=== PATIENT | female | born 1955 | race Caucasian/White ===

== ENCOUNTER 2019-03-15 08:44 | Inpatient (IN) ==
--- NOTE | 2019-02-28 16:35 | PAT Medication Instructions ---
Medication Instructions Date of Service February 28, 2019 Home Medications Copaiba 3 drp PO QAM ascorbic acid (vitamin C) [Vitamin C] 500 mg PO 3XWK calcium carbonate-vitamin D3 [Calcium 600 + D(3)] 1 tab PO BID docusate sodium [Stool Softener] 100 mg PO BID garlic 1,000 mg PO 3XWK hydroxychloroquine [Plaquenil] 200 mg PO Q2D hydroxychloroquine [Plaquenil] 400 mg PO Q2D levothyroxine 75 mcg PO 0300 multivitamin 1 tab PO DAILY naproxen 500 mg PO QAM omega 2-yox-vgn-fish oil [Fish Oil] 1 cap PO DAILY Continue as directed levothyroxine 75 mcg PO 0300 ASK your surgeon for instructions naproxen 500 mg PO QAM ASK your prescriber and surgeon hydroxychloroquine [Plaquenil] 200 mg PO Q2D hydroxychloroquine [Plaquenil] 400 mg PO Q2D STOP taking 2 weeks before surgery (or as soon as possible if surgery is within 2 weeks) omega 2-aab-htd-fish oil [Fish Oil] 1 cap PO DAILY garlic 1,000 mg PO 3XWK DO NOT take the morning of surgery ascorbic acid (vitamin C) [Vitamin C] 500 mg PO 3XWK calcium carbonate-vitamin D3 [Calcium 600 + D(3)] 1 tab PO BID docusate sodium [Stool Softener] 100 mg PO BID multivitamin 1 tab PO DAILY Copaiba 3 drp PO QAM Other Notes If you have any questions please call us at [phone] or [phone] or [phone] or [phone]
--- NOTE | 2019-03-01 11:21 | Anesthesiology Consultation ---
Date of Service March 01, 2019 Assessment & Plan (1) Encounter for pre-operative examination: - Awaiting review preop testing (labs, EKG, CXR, c-spine xray). - Awaiting surgeon-ordered PCP preop evaluation done 02/28 (Dr. Nunez). Chart Review Chart Review: Acceptable Risk for Surgery and Patient seen in Pre Admission Testing Consults Requested none Teaching & Discussion Pre-Anesthesia Teaching/Discussion Notes: Instructed NPO after midnight before surgery,except medications with 15 cc of water. Medication instructions provided according to the PAT guidelines. History Surgery Operation Date: 03/15/19 12:00 Proposed Procedures p Right Total Knee Arthroplasty - Kosta Liriano DO Height/Weight Height: 5 ft 4.5 in Weight: 70 kg Allergies Allergy/AdvReac Type Severity Reaction Status Date / Time terconazole [From Terazol 3] Allergy Intermediate swelling/re Verified 02/28/19 15:06 dness doxepin Allergy Unknown Unknown Verified 02/28/19 15:10 hydrocodone Allergy Unknown Unknown Verified 02/28/19 15:10 neomycin Allergy Unknown Unknown - Verified 02/28/19 15:10 able to use Neosporin Medications Home Medications Medication Instructions Recorded Confirmed Last Taken Copaiba 3 drp PO QAM 02/28/19 02/28/19 Unknown ascorbic acid (vitamin C) [Vitamin 500 mg PO 3XWK 02/28/19 02/28/19 Unknown C] calcium carbonate-vitamin D3 1 tab PO BID 02/28/19 02/28/19 Unknown [Calcium 600 + D(3)] docusate sodium [Stool Softener] 100 mg PO BID 02/28/19 02/28/19 Unknown garlic 1,000 mg PO 3XWK 02/28/19 02/28/19 Unknown hydroxychloroquine [Plaquenil] 200 mg PO Q2D 02/28/19 02/28/19 Unknown hydroxychloroquine [Plaquenil] 400 mg PO Q2D 02/28/19 02/28/19 Unknown levothyroxine 75 mcg PO 0300 02/28/19 02/28/19 Unknown multivitamin 1 tab PO DAILY 02/28/19 02/28/19 Unknown naproxen 500 mg PO QAM 02/28/19 02/28/19 Unknown omega 4-ngu-plk-fish oil [Fish Oil] 1 cap PO DAILY 02/28/19 02/28/19 Unknown Past Medical History Medical History Hypothyroidism Osteoarthritis Rheumatoid arthritis Exercise / Class Metabolic Activity III < 4 Walking/Shop/Light housework Past Family History Family History Mother No problems noted. Father Family history of diabetes mellitus Uncle Family hx of colon cancer Grandfather (Paternal) Family history of diabetes mellitus Grandmother (Maternal) No problems noted. Grandmother (Paternal) Family history of diabetes mellitus Sister FHx: breast cancer Past Surgical History Surgical History Fusion of spine Cervical (C4-C5) with allograft bone Cervical Fusion (C3-C4) H/O thumb surgery right thumb, joint replacement History of appendectomy History of arthroscopy of both knees History of colonoscopy History of dilatation and curettage S/P foot surgery, right x2 Past Anesthesia History No Hx of Anesthesia Complications and No Family Hx of Anesthesia Complications History of PONV No Hx of PONV and Hx of Motion Sickness (mild) Social History Smoking Status: Former smoker tobacco type: cigarettes Do You Dip or Chew Tobacco: No Smoking End Date: Quit 1984 Hx Alcohol Use: Yes Alcohol type: beer and wine alcohol intake frequency: holidays/special occasions only Hx Substance Use: No substance use type: does not use Review of Systems Patient denies chest pain, shortness of breath, reflux, cough, wheezing, palpitations. Physical Exam Vital Signs VITALS BP 148/79 P 54 TEMP 97.8 SP02 98%RA RESP 16 PHYSICAL Full neck and c-spine range of motion. Full TMJ range of motion. TMD 3 finger breaths Mallampati Score 1 Dentition: intact, cap upper left side Lungs: clear throughout to auscultation Cardiac: regular rate and rhythm, no murmurs noted Spine: normal Carotid arteries: negative bruit Extremities: no edema Testing Laboratory Results 03/01/19 11:35 03/01/19 11:30 PT 10.7 Seconds (9.0-12.0) 03/01/19 11:35 INR 1.0 (0.9-1.1) 03/01/19 11:35 APTT 23.5 Seconds (21.0-31.0) 03/01/19 11:35 Hemoglobin A1c 5.6 % (4.5-5.6) 03/01/19 11:35 Urine Color Yellow 03/01/19 11:35 Urine Appearance Clear (Clear) 03/01/19 11:35 Urine pH 8.0 (4.5-7.5) H 03/01/19 11:35 Ur Specific [place] 1.010 (1.000-1.030) 03/01/19 11:35 Urine Protein Negative (Negative) 03/01/19 11:35 Urine Glucose (UA) Negative (Negative) 03/01/19 11:35 Urine Ketones Negative (Negative) 03/01/19 11:35 Urine Nitrite Negative (Negative) 03/01/19 11:35 Ur Leukocyte Esterase Negative (Negative) 03/01/19 11:35 Blood Type AB Positive 03/01/19 11:35 Antibody Screen NEGATIVE 03/01/19 11:35 Electrocardiogram Date: 03/01/19 Findings: + SB @ Chest X-Ray Date: 03/01/19 Findings: + NAD Cervical Spine Date: 03/01/19 Findings: less than 5mm instability (3mm at C4/5)
[2019-03-01 12:05] LABS: Basophils # (auto) 0.02 K/uL (0-0.2); Basophils % (auto) 0.4 %; Eosinophils # (auto) 0.11 K/uL (0-0.5); Eosinophils % (auto) 2.4 %; Hematocrit (blood only) 39.7 % (37-47); Hemoglobin 13.6 g/dL (12.0-16.0); Lymphocytes # (auto) 1.55 K/uL (1.2-3.4); Lymphocytes % (auto) 34.5 %; Mean Corpuscular Hemoglobin 32.5 pg (25-34); Mean Corpuscular Hgb Conc 34.3 g/dL (32-36); Mean Platelet Volume 10.2 fL (7.4-10.4); Monocytes # (auto) 0.31 K/uL (0.11-0.59); Monocytes % (auto) 6.9 %; Neutrophils % (auto) 55.8 %; Platelet Count 246 K/uL (130-400); RDW Coefficient of Variation 12.9 % (11.5-14.5); RDW Standard Deviation 44.8 fL (36.4-46.3); Red Blood Count 4.18 M/uL (4.2-5.4); White Blood Count 4.49 K/uL (4.8-10.8)
[2019-03-01 12:08] LABS: Appearance Urine Clear (Clear); Bilirubin Urine Negative (Negative); Blood Urine Negative (Negative); Color Urine Yellow; Glucose Urine UA Negative (Negative); Ketones Urine Negative (Negative); Leukocyte Esterase Urine Negative (Negative); Nitrite Urine Negative (Negative); Protein Urine Negative (Negative); Urobilinogen Urine Negative (Negative)
--- NOTE | 2019-03-01 12:09 | XRay Report ---
XR cervical spine 2 or 3V HISTORY: 63 years-old Female RHEUMATOID ARTHRITIS preoperative exam COMPARISON: Chest radiograph of same day TECHNIQUE: 3 views of the cervical spine FINDINGS: Discectomy changes with anterior plate and screw fusion at C5-C6. Severe disc space narrowing at C6-C 7. Moderate multilevel disc space narrowing with moderate to severe facet arthrosis. 3 mm anterolisth esis C4 on C5 is noted with flexion and neutral positioning, nearly resolving with extension were sincere sures 1.5 mm. Alignment is otherwise satisfactory. No prevertebral soft tissue swelling. IMPRESSION: 1. No acute fracture. 2. Degenerative and postoperative changes as above. 3. 3 mm anterolisthesis C4 on C5 partially resolves with extension. The above report was generated using voice recognition software. It may contain grammatical, syntax o r spelling errors. Electronically signed by: Scotty Atkins M.D. 03/01/2019 12:08 PM
--- NOTE | 2019-03-01 12:11 | XRay Report ---
XR chest Pre-admission PA/Lat CLINICAL HISTORY: Preoperative chest COMPARISON STUDY: No previous studies for comparison. FINDINGS: The cardiac and mediastinal contours are normal. There is no evidence of focal pulmonary co nsolidation. There is no evidence of failure. No pleural effusions are visualized.[Postsurgical mustafa es are present within the cervical spine. IMPRESSION: No active disease in the chest. Electronically signed by: Henrry Giron M.D. 03/01/2019 12:09 PM
[2019-03-01 12:16] LABS: Albumin Level 4.1 gm/dl (3.4-5.0); BUN Creatinine Ratio 15.2 (10-20); Calcium 9.3 mg/dl (8.5-10.1); Creatinine Clr Calc Pharmacy 55.7 ml/min; Est GFR (African American) 69.8; Est GFR (Non-African American) 60.2; Potassium 4.3 mmol/L (3.5-5.1)
[2019-03-01 12:19] LABS: Estimated Average Glucose 114 mg/dl; Hemoglobin A1C 5.6 % (4.5-5.6); Partial Thromboplastin Ratio 0.9; Partial Thromboplastin Time 23.5 Seconds (21.0-31.0); Prothrombin Time 10.7 Seconds (9.0-12.0)
--- NOTE | 2019-03-03 18:57 | History & Physical Report ---
Date of Service March 03, 2019 date of surgery: 03-15-19 Assessment & Plan (1) Tricompartment osteoarthritis of right knee: Patient presents with increased pain in her right knee, has had previous knee scope performed by dr jordan, as well as previous visco series and cortisone most recently in July with no relief, has tried NSAIDs with no relief. risks and benefits discussed, would like to proceed with a right knee replacement at [facility] as scheduled. will obtain medical clearance prior to surgery as well as obtain PATs at [facility]. Will place on ASA 81mg po bid x 1 month post op, f/u 2 weeks post op for routine post-operative care and x-ray, sooner if having any problems. will make arrangements for HHPT at the time of discharge. At this point in time, has failed conservative measures and would like to proceed with surgical intervention. History of Present Illness Chief Complaint: Right knee pain Primary Care Provider: Elida Nunez Ms Martínez is a 63 year old female who complains of right knee pain, presents for pre-op evaluation prior to a right total knee replacement. She presents with pain, decreased rom and stiffness on the right side. She states that the symptoms have been chronic non-traumatic. The symptoms occur constantly with intermittent worsening. Currently the patient states that the symptoms are moderate-severe and the pain is described as aching and shooting. She rates her current pain as 6/10. The symptoms are aggravated by descending stairs, ascending stairs and daily activities. she has had prior arthroscopic surgery as well as visco injections without relief. Allergies Allergy/AdvReac Type Severity Reaction Status Date / Time terconazole [From Terazol 3] Allergy Intermediate swelling/re Verified 02/28/19 15:06 dness doxepin Allergy Unknown Unknown Verified 02/28/19 15:10 hydrocodone Allergy Unknown Unknown Verified 02/28/19 15:10 neomycin Allergy Unknown Unknown - Verified 02/28/19 15:10 able to use Neosporin Home Medications Home Medications Medication Instructions Recorded Confirmed Type Copaiba 3 drp PO QAM 02/28/19 02/28/19 History ascorbic acid (vitamin C) [Vitamin 500 mg PO 3XWK 02/28/19 02/28/19 History C] calcium carbonate-vitamin D3 1 tab PO BID 02/28/19 02/28/19 History [Calcium 600 + D(3)] docusate sodium [Stool Softener] 100 mg PO BID 02/28/19 02/28/19 History garlic 1,000 mg PO 3XWK 02/28/19 02/28/19 History hydroxychloroquine [Plaquenil] 200 mg PO Q2D 02/28/19 02/28/19 History hydroxychloroquine [Plaquenil] 400 mg PO Q2D 02/28/19 02/28/19 History levothyroxine 75 mcg PO 0300 02/28/19 02/28/19 History multivitamin 1 tab PO DAILY 02/28/19 02/28/19 History naproxen 500 mg PO QAM 02/28/19 02/28/19 History omega 5-xlj-spy-fish oil [Fish Oil] 1 cap PO DAILY 02/28/19 02/28/19 History Past Med/Surg History Medical History Hypothyroidism Osteoarthritis Rheumatoid arthritis Surgical History Fusion of spine Cervical (C4-C5) with allograft bone Cervical Fusion (C3-C4) H/O thumb surgery right thumb, joint replacement History of appendectomy History of arthroscopy of both knees History of colonoscopy History of dilatation and curettage S/P foot surgery, right x2 Family History Mother No problems noted. Father Family history of diabetes mellitus Uncle Family hx of colon cancer Grandfather (Paternal) Family history of diabetes mellitus Grandmother (Maternal) No problems noted. Grandmother (Paternal) Family history of diabetes mellitus Sister FHx: breast cancer Social History Preferred Language: Stateless Communication Ability: Effective Membership Coordinator Required: No Beliefs That Will Affect Care: None Current Living Situation: Spouse Other Information That Helps Us Care for You: No Feels Safe at Home: Yes Safety Concerns: Feels Safe At This Time Smoking Status: Former smoker Tobacco Type: cigarettes ; Do You Dip or Chew Tobacco: No ; Smoking End Date: Quit 1984 ; Second Hand Exposure: Yes (hx) ; Tobacco Cessation Education Requested by Patient: No Hx Alcohol Use: Yes Alcohol type: beer and wine Hx Substance Use: No Review of Systems Review of Systems: All systems reviewed & are unremarkable except as noted in HPI & below Constitutional: no fever, no chills and no sweats Respiratory: no cough and no dyspnea Cardiovascular: no chest pain, no dyspnea and no orthopnea Gastrointestinal: no abdominal pain, no nausea and no vomiting Musculoskeletal: as per Subjective / HPI Physical Exam Physical Exam: Ht: 5ft 4in wt: 70kg BP: 120/66 Pulse: 72 Constitutional: WD/WN, vitals as above no acute distress Respiratory: normal respiratory effort, lungs clear to auscultation no respiratory distress, no labored breathing and does not use accessory muscles Cardiovascular: RRR, no murmur, no edema Gastrointestinal (Abdomen): normal bowel sounds, soft, nontender, no hepatosplenomegaly Musculoskeletal: Knee: + knee abnormal to inspection (Right knee- ), + effusion (+1 effusion), + surgical incision (well healed portals), + limited ROM of knee (ROM 0/3/110), + knee ROM with crepitation, + joint line tenderness (medial joint line) and + Fede's sign positive; no deformity, no skin erythema, no ecchymosis, no valgus laxity, no varus laxity, anterior drawer test negative, Alondra's sign negative and pivot shift test negative Results & Data Laboratory Results Laboratory Results WBC 4.49 K/uL (4.8-10.8) L 03/01/19 11:35 RBC 4.18 M/uL (4.2-5.4) L 03/01/19 11:35 Hgb 13.6 g/dL (12.0-16.0) 03/01/19 11:35 Hct 39.7 % (37-47) 03/01/19 11:35 MCV 95.0 fL (80-100) 03/01/19 11:35 MCH 32.5 pg (25-34) 03/01/19 11:35 MCHC 34.3 g/dL (32-36) 03/01/19 11:35 RDW Std Deviation 44.8 fL (36.4-46.3) 03/01/19 11:35 RDW Coeff of [place] 12.9 % (11.5-14.5) 03/01/19 11:35 Plt Count 246 K/uL (130-400) 03/01/19 11:35 MPV 10.2 fL (7.4-10.4) 03/01/19 11:35 Immature Gran % (Auto) 0.0 % 03/01/19 11:35 Neut % (Auto) 55.8 % 03/01/19 11:35 Lymph % (Auto) 34.5 % 03/01/19 11:35 [place] % (Auto) 6.9 % 03/01/19 11:35 Eos % (Auto) 2.4 % 03/01/19 11:35 Baso % (Auto) 0.4 % 03/01/19 11:35 Immature Gran # (Auto) 0.00 K/uL (0.00-0.02) 03/01/19 11:35 Neut # (Auto) 2.50 K/uL (1.4-6.5) 03/01/19 11:35 Lymph # (Auto) 1.55 K/uL (1.2-3.4) 03/01/19 11:35 [place] # (Auto) 0.31 K/uL (0.11-0.59) 03/01/19 11:35 Eos # (Auto) 0.11 K/uL (0-0.5) 03/01/19 11:35 Baso # (Auto) 0.02 K/uL (0-0.2) 03/01/19 11:35 PT 10.7 Seconds (9.0-12.0) 03/01/19 11:35 INR 1.0 (0.9-1.1) 03/01/19 11:35 APTT 23.5 Seconds (21.0-31.0) 03/01/19 11:35 PTT Ratio 0.9 03/01/19 11:35 Sodium 137 mmol/L (136-145) 03/01/19 11:30 Potassium 4.3 mmol/L (3.5-5.1) 03/01/19 11:30 Chloride 102 mmol/L (98-107) 03/01/19 11:30 Carbon Dioxide 31 mmol/L (21-32) 03/01/19 11:30 Anion Gap 3.0 (3-11) 03/01/19 11:30 BUN 15 mg/dl (7-18) 03/01/19 11:30 Creatinine 0.99 mg/dl (0.6-1.2) 03/01/19 11:30 Est Cr Clr Drug Dosing 55.7 ml/min 03/01/19 11:30 Est GFR ( Amer) 69.8 03/01/19 11:30 Est GFR (Non-Af Amer) 60.2 03/01/19 11:30 BUN/Creatinine Ratio 15.2 (10-20) 03/01/19 11:30 Glucose 94 mg/dl (70-99) 03/01/19 11:30 Estimat Average Glucose 114 mg/dl 03/01/19 11:35 Hemoglobin A1c 5.6 % (4.5-5.6) 03/01/19 11:35 Calcium 9.3 mg/dl (8.5-10.1) 03/01/19 11:30 Albumin 4.1 gm/dl (3.4-5.0) 03/01/19 11:30 Urine Color Yellow 03/01/19 11:35 Urine Appearance Clear (Clear) 03/01/19 11:35 Urine pH 8.0 (4.5-7.5) H 03/01/19 11:35 Ur Specific [place] 1.010 (1.000-1.030) 03/01/19 11:35 Urine Protein Negative (Negative) 03/01/19 11:35 Urine Glucose (UA) Negative (Negative) 03/01/19 11:35 Urine Ketones Negative (Negative) 03/01/19 11:35 Urine Blood Negative (Negative) 03/01/19 11:35 Urine Nitrite Negative (Negative) 03/01/19 11:35 Urine Bilirubin Negative (Negative) 03/01/19 11:35 Urine Urobilinogen Negative (Negative) 03/01/19 11:35 Ur Leukocyte Esterase Negative (Negative) 03/01/19 11:35 Blood Type AB Positive 03/01/19 11:35 Antibody Screen NEGATIVE 03/01/19 11:35 Diagnostic Findings right knee 4 view series shows complete loss joint space medial compartment with overall varus alignment, there is also narrowing of the lateral compartment and patellofemoral joint. there is osteophyte formation, subchondral sclerosis noted, no loose bodies, no acute bony pathology. overall impression tricompartmental degenerative changes to the right knee.
[~2019-03-15 08:44] MED LIST: ACETAMINOPHEN 500 MG TAB PO SCH; BUPIVACAINE 0.5 % 5 MG/1 ML PF 10ML VIAL ONE; CEFAZOLIN 2000MG 2,000 MG/15 ML SYR IV SCH; CeleBREX 200 MG CAP PO SCH; FAMOTIDINE 20 MG TAB PO SCH; GABAPENTIN 600 MG DOSE PO SCH; LR 500ML BOLUS, THEN 15ML/HR IV SCH; METOCLOPRAMIDE HCL 10 MG TABLET PO SCH; ROPIVACAINE 0.5% HCL/PF 150 MG, BUPIVACAINE 0.5% MPF 30 ML, EPINEPHrine 30MG/30ML (OR U... INSTIL SCH; TRANEXAMIC ACID 1,000 MG **IV Intra-op IV SCH; TRANEXAMIC ACID 1,000 MG **IV Pre-op IV SCH; dexAMETHasone 4 MG TAB PO SCH
[2019-03-15] MEDS ORDERED: LIDOCAINE HCL 2% 2 ML VIAL/AMP(20MG/ML) INFIL ONE (09:21)
[2019-03-15] MEDS ORDERED: PROPOFOL IV EMULSION 10 MG/ML 20 ML VIAL IV ONE (09:21)
[2019-03-15] MEDS ORDERED: ONDANSETRON INJ 2 MG/ML 2 ML VIAL ONE (09:21)
[2019-03-15] MEDS ORDERED: fentaNYL citrate 100 MCG/2 ML VIAL ONE (09:21)
[2019-03-15] MEDS ORDERED: MIDAZOLAM HCL 1 MG/ML 2ML VIAL ONE (09:21)
[2019-03-15] MEDS ORDERED: ePHEDrine sulfate 50 MG/ML AMP IV PRN (09:42)
[2019-03-15] MEDS ORDERED: fentaNYL citrate 100 MCG/2 ML VIAL IV PRN (09:42)
[2019-03-15] MEDS ORDERED: ONDANSETRON INJ 2 MG/ML 2 ML VIAL IV PRN ×2 (09:42→15:05)
[2019-03-15] MEDS ORDERED: ATROPINE SULFATE 0.1 MG/ML 10ML SYR IV PRN (09:42)
--- NOTE | 2019-03-15 10:05 | History & Physical Bridge Note ---
Date of Service March 15, 2019 History & Physical Bridge Note I have examined the patient, reviewed the History & Physical and in the interval since the performance of the History & Physical I have noted the following changes of clinical significance: no changes noted
[2019-03-15] MEDS ORDERED: ePHEDrine sulfate 50 MG/ML SYR ONE (12:37)
--- NOTE | 2019-03-15 12:58 | Operative Report ---
Post Operative Report Pre & Post Diagnosis Operation Date: 03/15/19 11:15 Pre-Op Diagnosis: RIGHT KNEE OSTEOARTHRITIS Post-Op Diagnosis: RIGHT KNEE OSTEOARTHRITIS I identified the patient and participated in the time-out.: Yes Procedure Operation Date: 03/15/19 11:15 Actual Procedures p Right Total Knee Arthroplasty(Right) utilizing [employer]hocl[employer] journey 2 patient matched total knee arthroplasty size 5 femur 4 tibia 13 polyethylene 32 oval patella- Kosta Liriano DO Surgeon Kosta Liriano DO Automotive Parts Advisor Prabhakar CAMILO Estimated Blood Loss 5 Findings Consistent with Post-Op Diagnosis Patient presents with severe end-stage DJD with varus alignment [id number] subchondral cystic changes marginal osteophytes moderate to large effusion Specimens Bone cartilage Drains Medium bore Hemovac Complications none Disposition Accompanied Patient To Recovery: No Disposition: Recovery Room Indications Patient presents with severe end-stage DJD no response to conservative management including physical therapy anti-inflammatories relative rest activity modification corticosteroid injection Visco supplementation the above intraoperative findings noted times surgery Description of Procedure Patient is properly identifiedAfter proper prepping and draping of the Right lower extremity anterior midline incision was made over the region of the extensor extensor mechanism after meticulous hemostasis was obtained and maintained in subcutaneous tissues a medial parapatellar incision was made The patella was subluxed lateralward the medial lateral gutter were cleaned from any hypertrophic synovitis and scar tissue of the distal femoral block was placed and the distal femoral osteotomy cut was made subsequently the chamfers anterior and posterior osteotomy cuts were made utilizing the 4-in-1 block the tibia was subsequently subluxed anteriorward medial and ateral meniscal remnants were ex cised in their entirety remnants of the anterior and posterior cruciate ligaments were excised in their entirety excellent exposure of the proximal tibia was obtained the tibial osteotomy guide was placed on the proximal tibial osteotomy cut was made once again the knee was irrigated with copious amounts of sterile saline solution the patella was subsequently everted lateralward thickened scar tissue around the patella was removed the patella was subsequently cut utilizing a freehand technique and was drilled prepared for final preparation and placement of patella socially flexion-extension gaps were checked and the equal and symmetric trials were placed to the appropriate femoral and tibial trials with poly-spacer being placed for equal flexion and extension gaps and full range of motion including extension to 0 and flexion to 140 the trial components after having been taken to recovery range of motion was subsequently removed meticulous hemostasis was obtained and maintained subsequently a knee block injection of joint cocktail including ropivacaine 0.5% 150 mg. Bupivacaine 0.5% epinephrine 1-200,030 mL's toradol 30 mg dexamethasone 4 mg ketamine 10 mg clonidine 100 micrograms normal saline solution 30 mg was infiltrated into the soft tissues of the posterior knee medial lateral gutters and periosteal synovium special attention was paid to protect neurovascular structures at all times subsequently trial components having been removed the knee was irrigated with sterile saline solution. debris was removed the proximal tibia was subsequently prepared and was made ready for the placement of the tibial component tibial component was also cemented and tamped into position the femoral component was subsequently placed and cemented in the position the patellar component was subsequently cemented in position because hemostasis once again obtained and maintained wound having been thoroughly irrigated with debridement and debridement lavage was performed as well as a medial parapatellar incision closed with #1 Vicryl in interrupted fashion subcutaneous was closed with #2 Vicryl skin was closed with skin clips. PA-C was necessary for prepping and drapping as well as wound closure of deep fascia Sub cutaneous tissue and skin and was necessary for the case. A sterile compressive dressing was placed patient was taken to recovery in stable condition of report dictated by Heri I attest to the content of the Intraoperative Record and any orders documented therein. Any exceptions are noted below. I attest to the content of the Intraoperative Record and any orders documented therein. Any exceptions are noted below.
--- NOTE | 2019-03-15 14:28 | XRay Report ---
XR knee RT 1 or 2V routine HISTORY: 64 years-old Female Surgical Post Op right knee total joint arthroplasty COMPARISON: None available TECHNIQUE: 2 views of the right knee FINDINGS: Right knee total joint arthroplasty and patella resurfacing demonstrates satisfactory alignment. Ante rior midline skin carlos are noted along with expected postsurgical soft tissue swelling and deep ti ssue air with surgical drainage catheter. No acute fracture, dislocation or opaque foreign body. IMPRESSION: Satisfactory alignment of the right knee total joint arthroplasty. The above report was generated using voice recognition software. It may contain grammatical, syntax o r spelling errors. Electronically signed by: Scotty Atkins M.D. 03/15/2019 2:26 PM
[2019-03-15] MEDS ORDERED: OXYCODONE HCL IR 5 MG TAB (IMMEDIATE RELEASE) PO PRN (15:05)
[2019-03-15] MEDS ORDERED: BISACODYL 10 MG SUPP PR PRN (15:05)
[2019-03-15] MEDS ORDERED: NALOXONE HCL 0.4 MG/1 ML VIAL/CARP IV PRN (15:05)
[2019-03-15] MEDS ORDERED: METOCLOPRAMIDE HCL INJ 5 MG/ML 2 ML VIAL IV PRN (15:05)
[2019-03-15] MEDS ORDERED: HYDROmorphone INJ 1 MG/ML SYRINGE IV PRN (15:05)
[2019-03-15] MEDS ORDERED: MAGNESIUM HYDROXIDE SUSP 30 ML UDC PO PRN (15:05)
--- NOTE | 2019-03-15 15:05 | Anesthesiology Progress Note ---
Date of Service March 15, 2019 Anesthesia Post Procedure Vital Signs Vital Signs: Temp Pulse Pulse Resp BP Pulse Ox 03/15/19 14:30 97.7 F 70 16 101/62 97 03/15/19 14:20 67 26 H 100/61 97 03/15/19 14:10 71 13 105/61 97 03/15/19 14:00 80 15 105/67 98 03/15/19 13:50 71 14 106/61 99 03/15/19 13:40 97.2 F L 75 15 110/64 99 03/15/19 09:29 98.1 F 60 20 143/90 H 98 Transfer of Care Handoff Completed per policy Notes Mental Status: alert / awake / arousable and participated in evaluation Patient Amnestic to Procedure: Yes Nausea / Vomiting: adequately controlled Pain: adequately controlled Airway Patency, RR, SpO2: stable & adequate BP & HR: stable & adequate Hydration State: stable & adequate Neuraxial Anesthesia: was administered and sensory block is resolving Anesthetic Complications: no major complications apparent and Pt Satisfied with anesthetic care
[2019-03-15] MEDS: SODIUM CHLORIDE 0.9% 1000ML 1,000 ML IV SCH (16:12)
[2019-03-15] MEDS: KETOROLAC TROMETHAMINE 15 MG/ML VIAL IV SCH ×2 (16:14→22:09)
[2019-03-15] MEDS: ACETAMINOPHEN 500 MG TAB PO SCH ×2 (16:14→22:09)
[2019-03-15] MEDS: CALCIUM 600MG + VIT D 400 IU TAB PO SCH (20:12)
[2019-03-15] MEDS: ASPIRIN 81 MG ECTAB PO SCH (20:13)
[2019-03-15] MEDS: DOCUSATE SODIUM 100 MG CAP PO SCH (20:13)
[2019-03-15] MEDS ORDERED: SENNA 8.6 MG TAB PO SCH (21:00)
[2019-03-15] MEDS: CEFAZOLIN 1000MG 1,000 MG/7.5 ML SYR IV SCH (21:20)
[2019-03-16] MEDS: SODIUM CHLORIDE 0.9% 1000ML 1,000 ML IV SCH (02:48)
[2019-03-16] MEDS: KETOROLAC TROMETHAMINE 15 MG/ML VIAL IV SCH ×2 (05:06→09:37)
[2019-03-16] MEDS: CEFAZOLIN 1000MG 1,000 MG/7.5 ML SYR IV SCH (05:06)
[2019-03-16] MEDS: ACETAMINOPHEN 500 MG TAB PO SCH ×2 (05:06→13:05)
[2019-03-16 05:41] LABS: Hematocrit (blood only) 32.4 % (37-47); Mean Corpuscular Hemoglobin 32.4 pg (25-34); Mean Corpuscular Volume 95.3 fL (80-100); Mean Platelet Volume 10.1 fL (7.4-10.4); Platelet Count 219 K/uL (130-400); RDW Coefficient of Variation 12.9 % (11.5-14.5); RDW Standard Deviation 44.9 fL (36.4-46.3)
[2019-03-16 06:15] LABS: BUN Creatinine Ratio 12.8 (10-20); Calcium 8.4 mg/dl (8.5-10.1); Creatinine Clr Calc Pharmacy 50.1 ml/min; Est GFR (African American) 66.1; Potassium 3.8 mmol/L (3.5-5.1)
[2019-03-16] MEDS ORDERED: LEVOTHYROXINE SODIUM 75 MCG TABLET PO SCH (06:30)
[2019-03-16] MEDS: CALCIUM 600MG + VIT D 400 IU TAB PO SCH (08:36)
[2019-03-16] MEDS: ASPIRIN 81 MG ECTAB PO SCH (08:36)
[2019-03-16] MEDS: DOCUSATE SODIUM 100 MG CAP PO SCH (08:36)
[2019-03-16] MEDS ORDERED: MULTIVITAMIN TAB PO SCH (09:00)
[2019-03-16] MEDS ORDERED: ASCORBIC ACID 500 MG TAB PO SCH (09:00)
--- NOTE | 2019-03-16 09:48 | Orthopedic Progress Note ---
Date of Service March 16, 2019 Assessment & Plan (1) History of total right knee replacement: POD #1 s/p Right TKA pt/ot dvt proph with ARNALDO/SCD/ASA plan for d/c home with OPPT, JOSSELYN x 7 days Subjective POD #1 s/p Right TKA Review of Systems Constitutional: no fever, no chills and no sweats Respiratory: no cough and no dyspnea Cardiovascular: no chest pain and no dyspnea Gastrointestinal: no abdominal pain, no nausea and no vomiting Physical Exam Physical Exam: Vital Signs Temp 36.6 C 03/16/19 08:07 Pulse 62 03/16/19 08:07 Resp 18 03/16/19 08:07 BP 122/60 03/16/19 08:07 Pulse Ox 100 03/16/19 08:07 Intake & Output 03/15/19 03/16/19 03/16/19 18:59 06:59 18:59 Intake Total 1720 / 3995 2275 / 3995 Output Total 35 / 2310 2275 / 2310 400 / 400 Balance 1685 / 1685 0 / 1685 -400 / -400 Weight 65.5 kg Intake: IV 1220 / 2220 1000 / 2220 Lr 1,000 ml @ 15 mls/hr IV . 1000 / 1000 Q24H JAMES Rx#:[id number] Nss 1000ML 1,0 00 ml @ 100 mls/ 1000 / 1000 hr IV .Q10H SC H Rx#:[id number] Cyklokapron 1, 000 mg In Sodium 220 / 220 Chloride 100 m l @ 660 mls/hr IV 0630 JAMES Rx#:[id number] IV Perioperative 500 / 500 Oral 1275 / 1275 Output: Urine 2100 / 2100 400 / 400 Estimated Blood Loss 5 / 5 Drain Output 175 / 205 Right Knee Hem ovac 175 / Constitutional: WD/WN, vitals as above no acute distress Musculoskeletal: Right Leg: NVDI, calf SNT, negative kelsy sign. DP palpable, able to wiggle toes/ankle movement without difficulty. dressing clean dry and intact. Results & Data Vital Signs (Past 12 Hours) Vital Signs Temp Pulse Pulse Resp BP Pulse Ox 03/16/19 08:07 36.6 C 62 18 122/60 100 03/16/19 02:43 36.6 C 55 L 16 108/62 97 03/15/19 23:23 36.7 C 76 14 99/55 L 98 Laboratory Results Laboratory Results WBC 9.80 K/uL (4.8-10.8) 03/16/19 05:22 RBC 3.40 M/uL (4.2-5.4) L 03/16/19 05:22 Hgb 11.0 g/dL (12.0-16.0) L 03/16/19 05:22 Hct 32.4 % (37-47) L 03/16/19 05:22 MCV 95.3 fL (80-100) 03/16/19 05:22 MCH 32.4 pg (25-34) 03/16/19 05:22 MCHC 34.0 g/dL (32-36) 03/16/19 05:22 RDW Std Deviation 44.9 fL (36.4-46.3) 03/16/19 05:22 RDW Coeff of [place] 12.9 % (11.5-14.5) 03/16/19 05:22 Plt Count 219 K/uL (130-400) 03/16/19 05:22 MPV 10.1 fL (7.4-10.4) 03/16/19 05:22 Immature Gran % (Auto) 0.0 % 03/01/19 11:35 Neut % (Auto) 55.8 % 03/01/19 11:35 Lymph % (Auto) 34.5 % 03/01/19 11:35 [place] % (Auto) 6.9 % 03/01/19 11:35 Eos % (Auto) 2.4 % 03/01/19 11:35 Baso % (Auto) 0.4 % 03/01/19 11:35 Immature Gran # (Auto) 0.00 K/uL (0.00-0.02) 03/01/19 11:35 Neut # (Auto) 2.50 K/uL (1.4-6.5) 03/01/19 11:35 Lymph # (Auto) 1.55 K/uL (1.2-3.4) 03/01/19 11:35 [place] # (Auto) 0.31 K/uL (0.11-0.59) 03/01/19 11:35 Eos # (Auto) 0.11 K/uL (0-0.5) 03/01/19 11:35 Baso # (Auto) 0.02 K/uL (0-0.2) 03/01/19 11:35 PT 10.7 Seconds (9.0-12.0) 03/01/19 11:35 INR 1.0 (0.9-1.1) 03/01/19 11:35 APTT 23.5 Seconds (21.0-31.0) 03/01/19 11:35 PTT Ratio 0.9 03/01/19 11:35 Sodium 141 mmol/L (136-145) 03/16/19 05:22 Potassium 3.8 mmol/L (3.5-5.1) 03/16/19 05:22 Chloride 107 mmol/L (98-107) 03/16/19 05:22 Carbon Dioxide 28 mmol/L (21-32) 03/16/19 05:22 Anion Gap 5.0 (3-11) 03/16/19 05:22 BUN 13 mg/dl (7-18) 03/16/19 05:22 Creatinine 1.03 mg/dl (0.6-1.2) 03/16/19 05:22 Est Cr Clr Drug Dosing 50.1 ml/min 03/16/19 05:22 Est GFR ( Amer) 66.1 03/16/19 05:22 Est GFR (Non-Af Amer) 57.0 03/16/19 05:22 BUN/Creatinine Ratio 12.8 (10-20) 03/16/19 05:22 Glucose 129 mg/dl (70-99) H 03/16/19 05:22 Estimat Average Glucose 114 mg/dl 03/01/19 11:35 Hemoglobin A1c 5.6 % (4.5-5.6) 03/01/19 11:35 Calcium 8.4 mg/dl (8.5-10.1) L 03/16/19 05:22 Albumin 4.1 gm/dl (3.4-5.0) 03/01/19 11:30 Urine Color Yellow 03/01/19 11:35 Urine Appearance Clear (Clear) 03/01/19 11:35 Urine pH 8.0 (4.5-7.5) H 03/01/19 11:35 Ur Specific [place] 1.010 (1.000-1.030) 03/01/19 11:35 Urine Protein Negative (Negative) 03/01/19 11:35 Urine Glucose (UA) Negative (Negative) 03/01/19 11:35 Urine Ketones Negative (Negative) 03/01/19 11:35 Urine Blood Negative (Negative) 03/01/19 11:35 Urine Nitrite Negative (Negative) 03/01/19 11:35 Urine Bilirubin Negative (Negative) 03/01/19 11:35 Urine Urobilinogen Negative (Negative) 03/01/19 11:35 Ur Leukocyte Esterase Negative (Negative) 03/01/19 11:35 Hepatitis C Ab Screen Neg (Neg) 03/16/19 05:22 Blood Type AB Positive 03/01/19 11:35 Antibody Screen NEGATIVE 03/01/19 11:35 Diagnostic Findings XR knee RT 1 or 2V routine HISTORY: 64 years-old Female Surgical Post Op right knee total joint arthroplasty COMPARISON: None available TECHNIQUE: 2 views of the right knee FINDINGS: Right knee total joint arthroplasty and patella resurfacing demonstrates satisfactory alignment. Anterior midline skin carlos are noted along with expected postsurgical soft tissue swelling and deep tissue air with surgical drainage catheter. No acute fracture, dislocation or opaque foreign body. IMPRESSION: Satisfactory alignment of the right knee total joint arthroplasty.
[2019-03-16] MEDS ORDERED: CeleBREX 200 MG CAP PO SCH (21:00)
--- NOTE | 2019-03-17 22:17 | Discharge Summary ---
DISCHARGE DIAGNOSIS: Degenerative joint disease, right knee. SECONDARY DIAGNOSES: Hypothyroidism, osteoarthritis, rheumatoid arthritis. CONSULTS: None. COMPLICATIONS: None. PROCEDURES: Right total knee arthroplasty performed by Dr. Liriano on 03/15/2019. BRIEF HISTORY: As dictated in the history and physical. HOSPITAL SUMMARY: The patient was admitted on the above-noted date and had the above-noted surgery performed, which she tolerated well. On first postoperative day, she was remaining stable and had no complaints. Pain was controlled. Vital signs were stable and she was afebrile. Dressings were clean, dry and intact. Neurovascular intact. Calves were soft, nontender. Toes were mobile and she was started on physical therapy protocol and continued on DVT prophylaxis and pain management. She was planning on outpatient PT. She was started on PT protocol and was remaining stable and was progressing well with her physical therapy, and by later in the afternoon of 03/16/2019, vital signs were stable and she was afebrile. Pain was remaining controlled and it was felt she could be discharged to home. For further review, please see chart. LABORATORY AND X-RAY DATA: As per chart. DISCHARGE INSTRUCTIONS: The patient was discharged to home in satisfactory condition. Activity: Weightbearing as tolerated on the right lower extremity. Follow TKA instruction sheets and special care instructions as noted. Follow up with Dr. Liriano in 2 weeks. The patient is to call for appointment if one has not been made for you. DISCHARGE MEDICATIONS: Acetaminophen 1000 mg p.o. q. 8 hours, aspirin 81 mg p.o. b.i.d., cefadroxil 500 mg p.o. b.i.d., Celebrex 200 mg p.o. b.i.d. and oxycodone 5-10 mg p.o. q. 6 hours p.r.n. Resume home meds as listed and stop taking Plaquenil, naproxen and omega-3.
== END 2019-03-16 14:17 | disposition home or self-care (01) | DRG 470 ==
LOC: ASU 08:44 → 3E 14:48